=== PATIENT | male | born 1980 | race African-American/Black ===

== ENCOUNTER 2017-10-16 04:47 | Emergency (ER) | payer OTHER ==
--- NOTE | 2017-10-16 05:58 | RADIOLOGY REPORT (SQ) ---
EXAM DESCRIPTION: KNEE LEFT 3 VIEWS CLINICAL HISTORY: injury COMPARISON: None. FINDINGS: 3 views of the left knee. No acute fracture or dislocation. Normal osseous mineralization. Mild medial and patellofemoral compartment joint space narrowing and marginal osteophytosis. Small joint effusion. IMPRESSION: 1. No acute fracture or dislocation. 2. Small joint effusion. If there is concern for internal derangement MRI may be helpful.
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
[2017-10-16 06:10] VITALS: BP 138/94
== END 2017-10-16 06:16 | disposition home or self-care (01) ==
LOC: ER 04:47
DX: S80.02XA Contusion of left knee, initial encounter (principal); M25.462 Effusion, left knee; M25.562 Pain in left knee; V49.9XXA Car occupant (driver) (passenger) injured in unspecified traffic accident, initial encounter; F17.210 Nicotine dependence, cigarettes, uncomplicated; Z71.6 Tobacco abuse counseling
CPT/HCPCS: 99283; 99406